=== PATIENT | male | born 1975 | race Caucasian/White ===

== ENCOUNTER 2018-03-24 05:11 | Inpatient (IN) ==
[2018-03-24] MEDS ORDERED: Chlorhexidine Gluconate 2% 1 Pack (2 Cloths) TOPICAL ONE (05:29)
[2018-03-24] MEDS ORDERED: Metoprolol Tartrate 25 MG Tablet PO ONE (05:29)
[2018-03-24] MEDS ORDERED: Celecoxib 200 MG Capsule PO ONE (05:36)
[2018-03-24] MEDS ORDERED: Gabapentin 300 MG Capsule PO ONE (05:36)
[2018-03-24] MEDS ORDERED: Famotidine PF Inj 20 MG/2 ML Vial IV.PUSH ONE (05:36)
[2018-03-24] MEDS ORDERED: Dexamethasone Inj 20 MG/5 ML Vial IV.PUSH ONE (05:36)
[2018-03-24] MEDS ORDERED: Chlorhexidine 4% Topical 120 APPLIC/120 ML Bottle TOPICAL SCH (05:45)
[2018-03-24] MEDS ORDERED: Bupivacaine/Epi PF 0.25% Inj 20 ML, Bupivacaine Liposo PF 1.3% Inj 20 ML, Sodium Chlor ... P-ARTICULR SCH ×2 (05:45)
[2018-03-24] MEDS ORDERED: ceFAZolin 2 GM Premix Inj 2 GM/50 ML PIGGYBACK IV.SIG SCH (06:00)
[2018-03-24] MEDS ORDERED: Vancomycin Inj 1,000 MG in Sodium Chlor 0.9% Inj 250 ML IV.SIG SCH (06:00)
[2018-03-24] MEDS ORDERED: Tranexamic Acid Inj 1,300 MG in Sodium Chlor 0.9% Inj 100 ML IV.SIG SCH (06:00)
[2018-03-24] MEDS ORDERED: Sodium Chlor 0.9% Inj 500 ML IV.SIG SCH (06:00)
== END 2018-03-24 06:35 | disposition home or self-care (01) ==
LOC: HSDI 05:11
PROVIDERS: ADMIT Orthopaedic Surgery Orthopaedic Trauma; ATTEND Orthopaedic Surgery Orthopaedic Trauma